=== PATIENT | male | born 1980 | race African-American/Black ===

== ENCOUNTER 2019-06-17 10:55 | Emergency (ER) | payer OTHER ==
[~2019-06-17] VITALS: Ht 185.4 cm; Wt 104.3 kg
[~2019-06-17 10:55] MED LIST: CEFUROXIME250 MG PO; VOLTAREM 50 MG PO
== END 2019-06-17 14:29 | disposition home or self-care (01) ==
LOC: ER 10:55
DX: K29.00 Acute gastritis without bleeding (principal); R10.13 Epigastric pain; R19.7 Diarrhea, unspecified; R51 Headache; R11.0 Nausea

== ENCOUNTER 2019-12-10 08:43 | Emergency (ER) | payer OTHER ==
[~2019-12-10] VITALS: Ht 185.4 cm; Wt 111.1 kg
== END 2019-12-10 12:23 | disposition home or self-care (01) ==
LOC: ER
DX: R42 Dizziness and giddiness (principal)

== ENCOUNTER 2019-12-12 07:14 | Outpatient (CLI) | payer OTHER | END 2019-12-12 07:20 | disposition home or self-care (01) | LOC: LAB 07:14 | DX: E66.3 Overweight (principal); R42 Dizziness and giddiness; Z00.00 Encounter for general adult medical examination without abnormal findings; Z13.6 Encounter for screening for cardiovascular disorders ==

== ENCOUNTER 2019-12-16 09:02 | Outpatient (CLI) | payer OTHER | END 2019-12-16 09:10 | disposition home or self-care (01) | LOC: LAB 09:02 | DX: R94.5 Abnormal results of liver function studies (principal) ==

== ENCOUNTER 2019-12-17 07:17 | Outpatient (CLI) | payer OTHER | END 2019-12-17 07:22 | disposition home or self-care (01) | LOC: SONOGRAMA 07:17 | DX: R94.5 Abnormal results of liver function studies (principal) ==

== ENCOUNTER 2020-03-27 10:02 | Outpatient (CLI) | payer OTHER | END 2020-03-27 10:08 | disposition home or self-care (01) | LOC: RAD 10:02 | PROVIDERS: ATTEND General Practice | DX: M25.562 Pain in left knee (principal) ==